=== PATIENT | male | born 2000 | race African-American/Black ===

== ENCOUNTER 2022-04-26 08:42 | Emergency (ER) | payer OTHER, SELFPAY ==
[2022-04-26 09:00] VITALS: BP 129/79; PULSE 72; RESP 18; TEMP 36.9; O2SAT 99; BMI 32.3
--- NOTE | 2022-04-26 10:30 | ED_ITS ---
HPI - Head Injury General Chief complaint: Head Injury Stated complaint: Head ing/Work related Time Seen by Provider: 04/26/22 09:09 History of Present Illness HPI Narrative: Patient experienced a head injury of work yesterday, he was loading the lower level of a metal shelf and slipped while placing the object and his head banged hard into a steel post and since then he has felt dizziness and a headache , this happened yesterday the headache is not progressing and he has had some nausea but no vomiting He never lost consciousness he remembers everything clearly no vision changes no balance issues no confusion Related Data Previous Rx's Medication Instructions Recorded acetaminophen 500 mg capsule 1,000 mg PO TID PRN pain #20 caps 04/26/22 ibuprofen 600 mg tablet 600 mg PO Q6H PRN pain #20 tabs 04/26/22 ondansetron 4 mg disintegrating 4 mg PO Q6H PRN nausea and 04/26/22 tablet vomiting #7 tabs Allergies Allergy/AdvReac Type Severity Reaction Status Date / Time No Known Allergies Allergy Verified 04/26/22 09:04 [facility] Past Medical History Source: nursing notes reviewed Social History Social History Advance Directives: No Advance Directives Information Provided: No Physical Exam Vital Signs: Vital Signs: Last Vital Signs Temp 98.4 F 04/26/22 09:00 Pulse 72 04/26/22 09:00 Resp 18 04/26/22 09:00 BP 129/79 04/26/22 09:00 Pulse Ox 99 04/26/22 09:00 O2 Del Method 04/26/22 09:00 BMI result Body Mass Index 32.3 General appearance comfortable cooperative no acute distress Head is normocephalic atraumatic Pupils equal round reactive to light Extraocular motions are intact The ears no hemotympanum, No Martínez sign no raccoon eyes no tenderness to the bones of the face no defect to the scalp no hematoma Neck is supple and nontender Respiratory no distress Extremities full range of motion x4 Abdomen soft nontender Neuro gait and balance are normal, interaction and comprehension and expression are normal, cranial nerves 2-12 intact as tested, cerebellar exam is normal, motor is 5/5 x4, and sensation is intact and symmetrical Course Course Course Narrative: Robertson head CT score 0 Patient with mild headache and resolved dizziness is advised he may have sustained a concussion but very unlikely to be brain bleed or skull fracture and agreed no CT now we will return for any worsening symptoms Medications Administered Discontinued Medications Generic Name Dose Route Start Last Admin Trade Name Freq PRN Reason Stop Dose Admin Ibuprofen 600 mg 04/26/22 10:37 04/26/22 10:43 Ibuprofen 600 Mg Tablet PO 04/26/22 10:38 600 mg ONCE ONE Administration Ondansetron HCl 4 mg 04/26/22 10:37 04/26/22 10:43 Ondansetron Odt 4 Mg Tab.Wesdis TRANSLINGU 04/26/22 10:38 4 mg ONCE ONE Administration Discharge Plan Discharge Clinical Impression: Concussion Patient Disposition: Home, Self-Care Additional Instructions: You likely have a concussion from banging head but we are not concerned at this time about anything dangerous like brain bleed or skull fracture Your physical exam and neurologic exam were all normal Concussion usually does not last long, I am giving you 2 days off work and if not better follow with work connection for work related injury Return any time if things get worse such as severe worsening headache, balance issues confusion vomiting any worse condition or any concerns Prescriptions: New ondansetron 4 mg tablet,disintegrating 4 mg PO Q6H PRN (Reason: nausea and vomiting) Qty: 7 0RF ibuprofen 600 mg tablet 600 mg PO Q6H PRN (Reason: pain) Qty: 20 0RF acetaminophen 500 mg capsule 1,000 mg PO TID PRN (Reason: pain) Qty: 20 0RF Referrals: [facility] [Provider Group] (Follow-up for concussion from work injury) Stand Alone Forms: Work/School Release Interventions: ED Discharge Assessment Last Done: 04/26/22 10:57 Discharge Date/Time: 04/26/22 10:59
[2022-04-26] MEDS: Ibuprofen 600 MG TABLET PO (10:43)
[2022-04-26] MEDS: Ondansetron ODT 4 MG TAB.RAPDIS TRANSLINGU (10:43)
== END 2022-04-26 10:59 | disposition home or self-care (01) ==
PROVIDERS: Emergency Provider Emergency Medicine
DX: S06.0X0A Concussion without loss of consciousness, initial encounter (principal); W01.0XXA Fall on same level from slipping, tripping and stumbling without subsequent striking against object, initial encounter; Y93.9 Activity, unspecified; Y92.9 Unspecified place or not applicable; Y99.0 Civilian activity done for income or pay
CPT/HCPCS: 99283

== ENCOUNTER 2022-10-05 22:09 | Emergency (ER) | payer OTHER, SELFPAY ==
--- NOTE | ~2022-10-05 | XR_ITS ---
EXAMINATION: XR FOOT, RIGHT CLINICAL INFORMATION: Pain. COMPARISON: None available. TECHNIQUE: AP, lateral, and oblique views of the right foot. FINDINGS: No acute fractures or subluxation. 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 Os trigonum. No erosive changes. No abnormal soft tissue calcifications. Diffuse nonspecific soft tissue thickening. XR/XR foot RT min 3V IMPRESSION: 1. No acute fractures or subluxation. 2. 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 3. Os trigonum.
[2022-10-05 22:10] VITALS: BP 118/73; PULSE 96; RESP 20; TEMP 37; O2SAT 97; BMI 34.1
--- NOTE | 2022-10-06 00:12 | ED.GENADULT ---
HPI - General Adult General Chief complaint: Extremity Injury, Lower Stated complaint: R foot sprain Time Seen by Provider: 10/05/22 23:55 Source: patient, RN notes reviewed and old records reviewed Mode of arrival: ambulatory Limitations: no limitations History of Present Illness HPI narrative: 22-year-old male presents for evaluation of pain to the top of his right foot Patient has had the pain fairly consistently especially with ambulation since June He reports that while walking in the [place] he stepped in ?a 6 in hole and twisted the foot. ? He had x-rays that were unremarkable. He has been taking NSAIDs with minimal relief He reports that he is able to ambulate with ?hobbling around. ? Related Data Previous Rx's Medication Instructions Recorded acetaminophen 500 mg capsule 1,000 mg PO TID PRN pain #20 caps 04/26/22 ibuprofen 600 mg tablet 600 mg PO Q6H PRN pain #20 tabs 04/26/22 ondansetron 4 mg disintegrating 4 mg PO Q6H PRN nausea and 04/26/22 tablet vomiting #7 tabs Allergies Allergy/AdvReac Type Severity Reaction Status Date / Time No Known Allergies Allergy Verified 04/26/22 09:04 Review of Systems Musculoskeletal: Musculoskeletal: Reports arthralgias and Reports limited range of motion Physical Exam ED Vital Signs: Vital Signs - 24 hr 10/05/22 22:10 Temperature 98.6 F Pulse Rate 96 Respiratory Rate 20 Blood Pressure 118/73 Pulse Oximetry 97 Oxygen Delivery Method Room Air BMI result Body Mass Index 34.1 Const General: healthy appearing, comfortable, no acute distress, alert and awake Nutritional Appearance: well nourished Orientation/consciousness: patient oriented x3 Eyes Eyelids: Yes eyelids normal Conjunctivae: conjunctivae normal Sclerae: sclerae normal Corneas: corneas normal Pupils: Equal, round and reactive pupils present EOM: EOMs intact bilaterally Neck Neck: Yes full ROM Resp Effort & Inspection: normal respiratory effort, no audible wheezes and not labored Skin General skin exam: no rashes or lesions noted and elasticity normal Neuro General: patient oriented x3 Cranial nerves: Yes Equal, round and reactive pupils present and Yes Bilaterally intact EOM present Cognition (Neuro): normal cognition Extrem Other: Tenderness in the right anterior talofibular ligament. No significant edema. The patient does have good range of motion to the right foot and ankle. No medial malleolus tenderness Medical Decision Making Medical Decision Making [facility] Narrative: Patient has had 4 months of right foot/ankle pain. He has had negative x-rays and x-rays were ordered in triage today that were again negative. The patient will be referred to Orthopedics for likely physical therapy versus an MRI to rule out ligamentous injury Differential Diagnosis Differential Diagnoses: The differential diagnosis associated with the presentation includes Ankle sprain Ankle fracture Ligamentous injury Tendon rupture Radiology Impression Discussion of test interpretation with radiology: I have reviewed the radiologist's reading. Radiologist Impression: No acute fracture or subluxation of the right foot Discharge Plan Discharge Clinical Impression: Ankle sprain and strain Patient Disposition: Home, Self-Care Instructions: Ankle Sprain (ED) Additional Instructions: Call orthopedics at the number provided You may need physical therapy versus an MRI of the right foot/ankle You may continue to use ibuprofen/Tylenol as needed for pain Prescriptions: No Action ondansetron 4 mg tablet,disintegrating 4 mg PO Q6H PRN (Reason: nausea and vomiting) Qty: 7 0RF ibuprofen 600 mg tablet 600 mg PO Q6H PRN (Reason: pain) Qty: 20 0RF acetaminophen 500 mg capsule 1,000 mg PO TID PRN (Reason: pain) Qty: 20 0RF Referrals: Baltazar Astorga MD [Physician] - (Right foot pain x 4 months. Negative x-rays)
== END 2022-10-06 00:27 | disposition home or self-care (01) ==
LOC: HO.ED 10-06 00:17
PROVIDERS: Emergency Provider Internal Medicine
DX: S93.401A Sprain of unspecified ligament of right ankle, initial encounter (principal); X50.1XXA Overexertion from prolonged static or awkward postures, initial encounter; Y93.9 Activity, unspecified; Y92.828 Other wilderness area as the place of occurrence of the external cause; Y99.9 Unspecified external cause status
CPT/HCPCS: 73630; 99282; 99283

== ENCOUNTER 2022-10-16 07:04 | Emergency (ER) | payer MEDICAID, SELFPAY ==
[2022-10-16 07:18] VITALS: BP 110/66; PULSE 68; RESP 16; TEMP 36.3; O2SAT 97; BMI 33.5
[2022-10-16 08:12] LABS: MANUAL DIFF FLAG NO
--- NOTE | 2022-10-16 08:12 | PC.NURSE ---
pt a&ox3. respirations even and unlabored. skin appropriate for ethnicity. abdomen soft but tender to touch in the left and right upper quadrants. hypoactive bowel sounds x4 quadrants. pt reports waking up this morning with nausea, vomiting and explosive diarrhea. pt reports 3/10 abdominal pain currently. pt denies blood in vomit/diarrhea. vss.
[2022-10-16 08:18] LABS: Basophils Absolute Auto 0.1 X10*3/uL (0.0-0.2); Basophils Percent Auto 0.9 % (0-2); Eosinophils Absolute Auto 0.1 X10*3/uL (0.0-0.4); Eosinophils Percent Auto 2.2 % (0-4); Hemoglobin 14.4 g/dl (14.0-18.0); Imm Gran Abs Auto 0.08 X10*3/uL (0.00-0.03); Imm Gran Pct Auto 1.3 % (0.0-0.4); Lymphocytes Absolute Auto 1.4 X10*3/uL (1.2-4.9); Lymphocytes Percent Auto 22.3 % (20-40); Mean Corpuscular HGB Conc 32.7 g/dl (31.0-36.0); Mean Corpuscular Hemoglobin 27.4 pg (27.0-33.0); Mean Corpuscular Volume 83.8 fL (80.0-98.0); Mean Platelet Volume 9.8 fL (9.4-12.4); Monocytes Absolute Auto 0.6 X10*3/uL (0.1-1.2); Monocytes Percent Auto 8.7 % (2-11); Neutrophils Absolute Auto 4.1 x10*3/uL (2.0-8.3); Neutrophils Percent Auto 64.6 % (45-73); Platelet Count 236 X10*3/uL (160-400); Red Blood Count 5.25 X10*6/uL (4.60-5.80); Red Cell Distribution Width 14.8 % (11.0-16.0); White Blood Count 6.3 X10*3/uL (4.8-10.8)
[2022-10-16 08:34] LABS: Alanine Aminotransferase 25 U/L (0-40); Albumin Level 3.6 g/dL (3.5-5.0); Alkaline Phosphatase 68 U/L (39-117); Anion Gap 10 (12-20); Aspartate Amino Transferase 23 U/L (5-37); Bilirubin Direct 0.1 mg/dL (0.0-0.5); Bilirubin Total 0.3 mg/dL (0.0-1.0); Blood Urea Nitrogen 11 mg/dL (9-16); Calcium 8.8 mg/dL (8.4-10.2); Carbon Dioxide 26 mmol/L (22-29); Chloride 109 mmol/L (96-108); Creatinine Clr Calc Pharmacy 123.2; Estimated Glomerular Filt Rate > 60; Glucose Random 120 mg/dL (60-115); Lipase 20 U/L (8-78); Potassium 3.5 mmol/L (3.3-5.1); Sodium 141 mmol/L (135-145); Total Protein 6.3 g/dL (6.5-8.0)
--- NOTE | 2022-10-16 08:53 | ED.ABDPAIN ---
HPI - Abdominal Pain General Chief Complaint: Abdominal Pain Stated Complaint: diharrea Time Seen by Provider: 10/16/22 08:15 Source: patient and other (Girlfriend) Mode of arrival: ambulatory Limitations: no limitations History of Present Illness HPI narrative: 22-year-old male who presents emergency department for evaluation of nausea, vomiting, diarrhea and abdominal pain. The patient's symptoms started this morning when he woke up at around 05:00 hours. He states that he was vomiting continually for multiple hours. He also states that he had multiple episodes of diarrhea. There was no blood in the emesis or diarrhea. He states that he has had persistent nausea. He has not been able to eat but he was able to drink small sips of water. The patient also complained of abdominal pain. Patient ran his hand diffusely over his abdomen when asked to localize the pain, the pain is a constant, cramping sensation which is 4/10 at its worst. He denied fever, chills, rhinorrhea, sore throat, cough, chest pain, shortness of breath. He states that he does have myalgias but no arthralgias. The patient denied any recent travel, he has not been on antibiotics, he states he has not been around any ill people recently that he is aware of. The patient states he did have COVID-19 in the beginning of pandemic he states the symptoms feel different than the COVID-19 symptoms. Related Data Previous Rx's Medication Instructions Recorded acetaminophen 500 mg capsule 1,000 mg PO TID PRN pain #20 caps 04/26/22 ibuprofen 600 mg tablet 600 mg PO Q6H PRN pain #20 tabs 04/26/22 ondansetron 4 mg disintegrating 4 mg PO Q6H PRN nausea and 04/26/22 tablet vomiting #7 tabs ondansetron 4 mg disintegrating 4 mg PO Q6-8H PRN nausea and 10/16/22 tablet vomiting #14 tabs promethazine 25 mg tablet 25 mg PO Q6H PRN nausea and 10/16/22 vomiting #14 tabs Allergies Allergy/AdvReac Type Severity Reaction Status Date / Time No Known Allergies Allergy Verified 10/16/22 07:18 [facility] Past Medical History [facility] Narrative: Past medical history: None. Past surgical history: None. Social history: He denies tobacco, alcohol and drug use. Social History Social History Alcohol intake: current Alcohol intake frequency: holidays/special occasions only Smoked in Last 30 Days: No Use of substances other than those prescribed or required for medical reasons: No Advance Directives: No Advance Directives Information Provided: No Physical Exam ED Vital Signs: Vital Signs - 24 hr 10/16/22 07:18 10/16/22 10:02 Temperature 97.3 F Pulse Rate 68 69 Respiratory Rate 16 14 Blood Pressure 110/66 121/62 Pulse Oximetry 97 99 Oxygen Delivery Method Room Air Room Air BMI result Body Mass Index 33.5 Vital signs were negative. Exam: General: Awake, alert in no distress Head: Normocephalic, atraumatic EENT: PERRL, Lids normal, sclera normal, conjunctiva normal, nose normal , ears normal, throat without erythema or exudates Neck: Supple, no adenopathy, trachea midline and nontender Lung: breath sounds symmetric, no wheezing, rales or rhonchi Chest: symmetric movement, nontender Heart: regular rate and rhythm, normal S1, S2 no murmurs or rubs Abdomen: soft, mild to moderate diffuse tenderness, normoactive bowel sounds, no rebound, no voluntary or involuntary guarding, no distension Back: no vertebral tenderness, no CVAT Extremities: no deformities, moves all extremities symmetrically Skin: no rashes, no lesion, normal color and warmth Neuro: Awake, alert, oriented, normal speech, cranial nerves intact, moves all extremities symmetrically Psych: Pleasant, cooperative Medical Decision Making Medical Decision Making MDM Narrative: 22-year-old male who presents emergency department for evaluation of nausea , vomiting, abdominal and diarrhea with symptoms starting this morning at 05:00 hours. Patient's vital signs were unremarkable. Examination did reveal diffuse abdominal tenderness otherwise was unremarkable. I ordered the following evaluation on the patient: CBC, CMP, lipase. Patient was ordered to get Toradol 15 mg IV, Zofran 4 mg IV and lactated Ringer's x2 L. 1303: The patient did feel better after the above treatment, his nausea persisted and he was given Phenergan 12.5 mg IV with improvement of his symptoms Patient's laboratory evaluation was unremarkable Patient was able to eat crackers and drink change drawing difficulty. Patient's presentation is consistent with a viral gastroenteritis I did discuss this with him. Patient was advised to take Tylenol and ibuprofen for pain, Imodium for diarrhea was prescribed both Zofran and Phenergan for his nausea and vomiting. 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 Differential Diagnosis Differential Diagnoses: The differential diagnosis associated with the presentation includes Differential diagnosis includes was not limited to viral syndrome, gastroenteritis, gastritis, appendicitis, pancreatitis, esophagitis, Admission/Observation Consideration of admission/observation: Escalation of care including admission/observation considered Lab Data MDM Lab Attestation statement: I reviewed the patient's lab results. My interpretation patient's laboratory evaluation as follows: CBC normal. CMP normal except for an elevated chloride and elevated glucose. 10/16/22 08:08 10/16/22 08:08 Labs: Lab Results 10/16/22 10/16/22 10/16/22 Range/Units 08:08 08:08 12:19 WBC 6.3 (4.8-10.8) X10*3/uL RBC 5.25 (4.60-5.80) X10*6/uL Hgb 14.4 (14.0-18.0) g/dl Hct 44.0 (42.0-52.0) % MCV 83.8 (80.0-98.0) fL MCH 27.4 (27.0-33.0) pg MCHC 32.7 (31.0-36.0) g/dl RDW 14.8 (11.0-16.0) % Plt Count 236 (160-400) X10*3/uL MPV 9.8 (9.4-12.4) fL Immature Gran % (Auto) 1.3 H (0.0-0.4) % Neut % (Auto) 64.6 (45-73) % Lymph % (Auto) 22.3 (20-40) % Sheridan % (Auto) 8.7 (2-11) % Eos % (Auto) 2.2 (0-4) % Baso % (Auto) 0.9 (0-2) % Lymph # (Auto) 1.4 (1.2-4.9) X10*3/uL Sheridan # (Auto) 0.6 (0.1-1.2) X10*3/uL Eos # (Auto) 0.1 (0.0-0.4) X10*3/uL Baso # (Auto) 0.1 (0.0-0.2) X10*3/uL Abs Immat Gran (auto) 0.08 H (0.00-0.03) X10*3/uL Absolute Neuts (auto) 4.1 (2.0-8.3) x10*3/uL Absolute Nucleated RBC 0.000 (0.0-0.012) X10*3/uL Nucleated RBC % (auto) 0.0 (0.0-0.2) /100WBC Sodium 141 (135-145) mmol/L Potassium 3.5 (3.3-5.1) mmol/L Chloride 109 H (96-108) mmol/L Carbon Dioxide 26 (22-29) mmol/L Anion Gap 10 L (12-20) BUN 11 (9-16) mg/dL Creatinine 1.19 (0.5-1.4) mg/dL Estim Creat Clear Calc 123.2 Estimated GFR > 60 Random Glucose 120 H (60-115) mg/dL Calcium 8.8 (8.4-10.2) mg/dL Total Bilirubin 0.3 (0.0-1.0) mg/dL Direct Bilirubin 0.1 (0.0-0.5) mg/dL AST 23 (5-37) U/L ALT 25 (0-40) U/L Alkaline Phosphatase 68 (39-117) U/L Total Protein 6.3 L (6.5-8.0) g/dL Albumin 3.6 (3.5-5.0) g/dL Lipase 20 (8-78) U/L Urine Color Yellow Urine Appearance Clear Urine pH 6.5 (5.0-9.0) Ur Specific Colon 1.015 (1.005-1.025) Urine Protein 300 (3+) H (Neg-Trace) mg/dL Urine Glucose (UA) Negative (Negative) mg/dL Urine Ketones Negative (Negative) mg/dL Urine Blood Negative (Negative) Urine Nitrite Negative (Negative) Ur Leukocyte Esterase Negative (Negative) Urine RBC 0-2 (0-2) /HPF Urine WBC 0-5 (0-5) /HPF Ur Squamous Epith Cells 0-2 (0-2) /HPF Urine Bacteria None Seen (None Seen) Hyaline Casts 0-2 (0-2) /LPF Medications Administered Discontinued Medications Generic Name Dose Route Start Last Admin Trade Name Aiden PRN Reason Stop Dose Admin Lactated Ringer's 1,000 mls @ 999 mls/hr 10/16/22 09:15 10/16/22 10:54 Lr IV 10/16/22 10:15 Infused .Q1H1M PRICE Infusion Lactated Ringer's 1,000 mls @ 999 mls/hr 10/16/22 09:15 10/16/22 12:15 Lr IV 10/16/22 10:15 Infused .Q1H1M PRICE Infusion Promethazine HCl 12.5 mg/ 50.5 mls @ 202 mls/hr 10/16/22 11:32 10/16/22 12:34 Sodium Chloride IV 10/16/22 11:33 Infused ONCE ONE Infusion Ketorolac Tromethamine 15 mg 10/16/22 09:03 10/16/22 09:21 Ketorolac Tromethamine 15 Mg/Ml Vial IVPUSH 10/16/22 09:04 15 mg ONCE STA Administration Ondansetron HCl 4 mg 10/16/22 09:03 10/16/22 09:22 Ondansetron Hcl 4 Mg/2 Ml Vial IVPUSH 10/16/22 09:04 4 mg ONCE ONE Administration Discharge Plan Discharge Clinical Impression: Gastroenteritis, Viral syndrome, Acute dehydration Patient Disposition: Home, Self-Care Instructions: Gastroenteritis (ED), Viral Syndrome (ED) Additional Instructions: Your blood work was unremarkable. Your symptoms are consistent with a viral infection causing you to have vomiting and diarrhea (gastroenteritis) You were treated here in the emergency department with Toradol 15 mg IV, Zofran 4 mg IV, Phenergan 12.5 mg IV and 2 L fluid IV. Take Zofran ODT 4 mg pills, 1 pill dissolved in your mouth every 8 hours as needed for nausea and vomiting. Take Phenergan (promethazine) 25 mg 1 pill every 8 hours as needed for nausea and vomiting. Take ibuprofen 200 mg pills, 2 pills every 6 hours as needed for pain or fever. Take Tylenol (acetaminophen) 500 mg pills, 2 pills every 6 hours as needed for pain or fever. For diarrhea I want you to take Imodium 2 mg pills. Take 2 pills after the 1st loose, diarrheal stool then 1 pill after each loose, diarrheal stool up to 8 pills per day. This usually stops diarrhea within 24 hours. Please see the work Prescriptions: New promethazine 25 mg tablet 25 mg PO Q6H PRN (Reason: nausea and vomiting) Qty: 14 0RF ondansetron 4 mg tablet,disintegrating 4 mg PO Q6-8H PRN (Reason: nausea and vomiting) Qty: 14 0RF No Action ondansetron 4 mg tablet,disintegrating 4 mg PO Q6H PRN (Reason: nausea and vomiting) Qty: 7 0RF ibuprofen 600 mg tablet 600 mg PO Q6H PRN (Reason: pain) Qty: 20 0RF acetaminophen 500 mg capsule 1,000 mg PO TID PRN (Reason: pain) Qty: 20 0RF Stand Alone Forms: Work/School Release
[2022-10-16] MEDS: Ketorolac Tromethamine 15 MG/ML VIAL IVPUSH (09:21)
[2022-10-16] MEDS: Lactated Ringers 1,000 ML 999 ML IV ×2 (09:21→10:54)
[2022-10-16] MEDS: ondansetron HCL 4 MG/2 ML VIAL IVPUSH (09:22)
[2022-10-16 10:02] VITALS: BP 121/62; PULSE 69; RESP 14; O2SAT 99
[2022-10-16 12:31] LABS: Appearance Urine Clear; Color Urine Yellow; Glucose Urine UA Negative (Negative); Leukocyte Esterase Urine Negative (Negative); Nitrite Urine Negative (Negative); PH 6.5 (5.0-9.0); Specific Gravity - Urine 1.015 (1.005-1.025); UMIC TRIGGER UACC YES; Urine Blood Negative (Negative); Urine Ketones Negative (Negative); Urine Protein 300 (3+) mg/dL (Neg-Trace)
[2022-10-16 12:33] LABS: Bacteria Urine None Seen (None Seen); Hyaline Casts Urine 0-2 /LPF (0-2); RBC Urine 0-2 /HPF (0-2); Squamous Epithelial Cell Urine 0-2 /HPF (0-2); WBC Urine 0-5 /HPF (0-5)
== END 2022-10-16 13:18 | disposition home or self-care (01) ==
PROVIDERS: Emergency Provider Emergency Medicine Emergency Medical Services
DX: K52.9 Noninfective gastroenteritis and colitis, unspecified (principal); E86.0 Dehydration; B34.9 Viral infection, unspecified; R10.9 Unspecified abdominal pain
CPT/HCPCS: 36415; 80048; 80076; 81001; 83690; 85025; 96361; 96365; 96375; 99284; 99285; J1885; J2405; J2550